=== PATIENT | male | born 1995 | race Caucasian/White ===

== ENCOUNTER 2016-07-23 08:13 | Emergency (ER) | payer OTHER ==
[2016-07-23 08:24] VITALS: BP 123/70
--- NOTE | 2016-07-23 08:32 | UC ---
Throat Pain/Nasal Miguel HPI - HPI Summary HPI Summary: complaint nasal congestion and cough that started over 1 week ago bloody nose frequently last week 2 days ago the right side of his face feels swollen started in his lip and progressed into his cheek feels pressure in right frontal sinuses and lip feels painful when blowing his nose denies fever ,chills, dental pain, headache took some ibuprofen with some relief yesterday started sudafed last night with some relief of nasal congestion - History of Current Complaint Chief Complaint: UC Stated Complaint: SINUS COMPLAINT Hx Obtained From: Patient Onset/Duration: Gradual Onset, Lasting Days, Still Present - Allergies/Home Medications Allergies/Adverse Reactions: Allergies Allergy/AdvReac Type Severity Reaction Status Date / Time No Known Allergies Allergy Verified 04/08/14 13:08 PMH/Surg Hx/FS Hx/Imm Hx Previously Healthy: No - Surgical History Surgical History: Yes Surgery Procedure, Year, and Place: hiatal hernia repair - Family History Known Family History: Positive: Hypertension - father, Diabetes - father Negative: Cardiac Disease - Social History Occupation: Employed Full-time Alcohol Use: None Substance Use Type: None Smoking Status (MU): Never Smoked Tobacco Review of Systems Constitutional: Negative Skin: Other - facial swelling Eyes: Negative ENT: Nasal Discharge Respiratory: Cough Cardiovascular: Negative Gastrointestinal: Negative Genitourinary: Negative Motor: Negative Neurovascular: Negative Musculoskeletal: Negative Neurological: Negative Psychological: Negative All Other Systems Reviewed And Are Negative: Yes Physical Exam Triage Information Reviewed: Yes Appearance: No Pain Distress, Well-Nourished Vital Signs: Initial Vital Signs Temp 98.0 F 07/23/16 08:20 Pulse 69 07/23/16 08:20 Resp 16 07/23/16 08:20 BP 123/70 07/23/16 08:20 Pulse Ox 100 07/23/16 08:20 Vital Signs Reviewed: Yes Eyes: Positive: Conjunctiva Clear ENT: Positive: Pharyngeal erythema, Nasal congestion, Nasal drainage, TM bulging , Other: - right sided maxillary sinus tenderness slight edema from the right side of upper lip and right side of nare into cheek- approx 4x3cm area no induration no edema or erythema near orbits. Negative: TM dull, TM red Dental Exam: Other - no dental caries no edema erythema in gums Neck: Positive: Supple, No Lymphadenopathy Respiratory: Positive: Lungs clear, Normal breath sounds, No respiratory distress Cardiovascular: Positive: RRR, No Murmur, Pulses Normal Abdomen Description: Positive: Nontender, Soft Bowel Sounds: Positive: Present Musculoskeletal: Positive: No Edema Neurological: Positive: Alert Psychological Exam: Normal Skin: Positive: Other - see ENT Throat Pain/Nasal Course/Dx - Course Course Of Treatment: exam completed. right sided maxillary sinus tenderness following URI that began over 7 days ago. right sided facila swelling- no involvement of orbit. will treat with augmentin and folllowup in 1-2 days if symptoms worsen - Differential Dx/Diagnosis Differential Diagnosis/HQI/PQRI: Sinusitis, URI, Other - periorbital cellulitis Provider Diagnoses: sinusitis, facial swelling right sided Discharge - Discharge Plan Condition: Stable Disposition: HOME Prescriptions: Amoxicillin/Clavulanate TAB* [Augmentin TAB 875*] 875 mg PO BID #20 tab Patient Education Materials: Cellulitis (ED), Sinusitis (ED) Referrals: Estrellita Fregoso MD [Primary Care Provider] - [facility] [place] [facility] [Outside] Additional Instructions: Please start antibiotic as directed. Increase fluids and rest Take acetaminophen or ibuprofen for fever or pain If you have an increase in swelling, redness, pain or you develop a fever you need to be re-evaluated in 1-2 days Please review your discharge instructions. If your symptoms do not improve please call your primary care provider or return to urgent care.
== END 2016-07-23 09:00 | disposition home or self-care (01) ==
LOC: UCEAST 08:13
DX: J01.90 Acute sinusitis, unspecified (principal); B96.89 Other specified bacterial agents as the cause of diseases classified elsewhere; R22.0 Localized swelling, mass and lump, head
CPT/HCPCS: 99212; G0463

== ENCOUNTER 2019-08-01 13:50 | Emergency (ER) | payer OTHER ==
[2019-08-01 14:30] VITALS: BP 115/70
--- NOTE | 2019-08-01 15:03 | UC ---
FLU HPI - History of Current Complaint Chief Complaint: UCGeneralIllness Stated Complaint: COUGH,CONGESTION Time Seen by Provider: 08/01/19 14:39 Hx Obtained From: Patient Onset/Duration: Sudden Onset, Lasting Days Severity Currently: Moderate Severity Initially: Moderate Pain Intensity: 0 - Allergy/Home Medications Allergies/Adverse Reactions: Allergies Allergy/AdvReac Type Severity Reaction Status Date / Time No Known Allergies Allergy Verified 08/01/19 14:24 Home Medications: Home Medications Doxylamine/Phenylep/Dm/Aspirin [Teena-[place] Day-Night Tab Eff] 1 dose PO ONCE 08/01/19 [History Confirmed 08/01/19] Guaifen/Phenyleph/Acetaminophn [Tylenol Sinus Severe Caplet] 1 tab PO ONCE 08/01 [History Confirmed 08/01/19] PMH/Surg Hx/FS Hx/Imm Hx Previously Healthy: Yes - Surgical History Surgical History: Yes Surgery Procedure, Year, and Place: hiatal hernia repair - Family History Known Family History: Positive: Hypertension - father, Diabetes - father Negative: Cardiac Disease - Social History Alcohol Use: None Substance Use Type: None Smoking Status (MU): Never Smoked Tobacco Review of Systems All Other Systems Reviewed And Are Negative: Yes Constitutional: Positive: Fever, Chills, Fatigue ENT: Positive: Sore Throat, Ear Ache Respiratory: Positive: Cough Neurological: Positive: Headache Is Patient Immunocompromised?: No Physical Exam Triage Information Reviewed: Yes Appearance: Well-Nourished, Ill-Appearing, Pain Distress Vital Signs: Initial Vital Signs Temp 99.5 F 08/01/19 14:26 Pulse 99 08/01/19 14:26 Resp 15 08/01/19 14:26 BP 115/70 08/01/19 14:26 Pulse Ox 99 08/01/19 14:26 Vital Signs Reviewed: Yes Eye Exam: Normal ENT: Positive: Pharyngeal erythema, TM bulging, Tonsillar swelling Dental Exam: Normal Respiratory: Positive: Wheezing, Inspiration Cardiovascular: Positive: RRR, No Murmur, Pulses Normal Abdominal Exam: Normal Bowel Sounds: Positive: Present Musculoskeletal Exam: Normal Neurological Exam: Normal Psychological Exam: Normal Skin Exam: Normal Flu Course/Dx - Course Course Of Treatment: hx obtained, exam performed ,meds reviewed, rapid strep completed per patient request. symtpoms present more flu like - Differential Dx/Diagnosis Differential Diagnosis/HQI/PQRI: Influenza Provider Diagnosis: Viral syndrome Discharge ED - Sign-Out/Discharge Documenting (check all that apply): Patient Departure All imaging exams completed and their final reports reviewed: No Studies - Discharge Plan Condition: Stable Disposition: HOME Patient Education Materials: Viral Syndrome (ED) Referrals: No Primary Care Phys,NOPCP [Primary Care Provider] - Additional Instructions: 1. continue with ibuprofen and tylenol for pain and fever. 2. Heat yourself and get plenty of rest. 3. Increase fluids 4. REST! follow up as needed. - Billing Disposition and Condition Condition: STABLE Disposition: Home
== END 2019-08-01 15:08 | disposition home or self-care (01) ==
LOC: UCCORT 13:50
DX: B34.9 Viral infection, unspecified (principal); J02.9 Acute pharyngitis, unspecified; H92.09 Otalgia, unspecified ear; J35.8 Other chronic diseases of tonsils and adenoids; R05 Cough; R51 Headache; R53.83 Other fatigue
CPT/HCPCS: 87651; 99202; G0463